=== PATIENT | female | born 2000 | race Caucasian/White ===

== ENCOUNTER 2023-04-09 14:06 | Emergency (ER) | payer MEDICAID ==
[~2023-04-09] VITALS: Ht 396.2 cm; Wt 59.0 kg
[2023-04-09 14:06] VITALS: BP 150/79; PULSE 143; RESP 20; TEMP 98.6; O2SAT 99
[2023-04-09] MEDS: NACL 0.9% 1,000 ML IV ONE (14:59)
[2023-04-09] MEDS: ONDANSETRON 4 MG/2 ML VIAL IVP ONE (15:00)
[2023-04-09] MEDS: KETOROLAC 30 MG/ML VIAL IVP ONE (15:01)
[2023-04-09 15:23] LABS: FLU B ANTIGEN negative (NEGATIVE)
[2023-04-09 15:30] LABS: FLU A ANTIGEN POSITIVE (NEGATIVE)
[2023-04-09] MEDS ORDERED: ONDA-188 PO (15:47)
== END 2023-04-09 16:00 | disposition home or self-care (01) ==
LOC: MED 14:06
DX: J10.1 Influenza due to other identified influenza virus with other respiratory manifestations (principal); Z20.822 Contact with and (suspected) exposure to COVID-19; Z79.899 Other long term (current) drug therapy
CPT/HCPCS: 71045; 81025; 87426; 87804; 96361; 96374; 96375; 99284; J1885; J2405; J7030; Q0092